=== PATIENT | female | born 1995 | race African-American/Black ===

== ENCOUNTER 2017-05-09 11:25 | Emergency (ER) | payer OTHER ==
[2017-05-09 11:56] VITALS: BP 133/84
--- NOTE | 2017-05-09 12:26 | UC ---
Respiratory Complaint HPI - HPI Summary HPI Summary: Pt presents with sinus congestion, ST, and cough. She tells me that about 10 days ago she began to have a ST. Soon thereafter she started having a dry cough and sinus congestion. Over the last 2-3 days she has had these symptoms in addition to a fever and productive cough with chest congestion. Pt says that she usually uses an albuterol syrup, which she has had good relief with since she was young, but she is currently out and would like a refill. Has not been taking anything OTC. Denies SOB, chest pain, palpitations, abdominal pain, N/V/D /C. - History of Current Complaint Chief Complaint: UCRespiratory Stated Complaint: COUGH,ASTHMA Time Seen by Provider: 05/09/17 12:17 Hx Obtained From: Patient Hx Last Menstrual Period: 04/22/17 ?: No Onset/Duration: Gradual Onset Timing: Constant Severity Initially: Mild Severity Currently: Moderate Character: Cough: Productive - Allergies/Home Medications Allergies/Adverse Reactions: Allergies Allergy/AdvReac Type Severity Reaction Status Date / Time No Known Allergies Allergy Verified 05/09/17 11:47 Home Medications: Home Medications Albuterol HFA INHALER* [Ventolin HFA Inhaler*] 2 puff INH Q4H PRN 05/09/17 [ History Confirmed 05/09/17] Albuterol SYRUP* [Proventyl Syrup*] PRN 05/09/17 [History] medroxyPROGESTERone ACETATE* [DEPO-Provera] 150 mg IM 05/09/17 [History] PMH/Surg Hx/FS Hx/Imm Hx Previously Healthy: Yes Respiratory History: Asthma - Surgical History Surgical History: Yes Surgery Procedure, Year, and Place: ORBITAL CYST REMOVAL - Social History Occupation: Student Lives: Dormitory/Roommates Alcohol Use: None Substance Use Type: None Smoking Status (MU): Never Smoked Tobacco Review of Systems Constitutional: Fever Skin: Negative Eyes: Negative ENT: Sore Throat, Nasal Discharge, Sinus Pain/Tenderness Respiratory: Cough Cardiovascular: Negative Gastrointestinal: Negative Genitourinary: Negative All Other Systems Reviewed And Are Negative: Yes Physical Exam Triage Information Reviewed: Yes Appearance: Well-Nourished, Ill-Appearing Vital Signs: Initial Vital Signs Temp 98.5 F 05/09/17 11:49 Pulse 73 05/09/17 11:49 Resp 20 05/09/17 11:49 BP 133/84 05/09/17 11:49 Pulse Ox 100 05/09/17 11:49 Vital Signs Reviewed: Yes Eyes: Positive: Conjunctiva Clear. Negative: Discharge ENT: Positive: Hearing grossly normal, Pharyngeal erythema, Nasal congestion, TMs normal, Tonsillar swelling - 2+, Sinus tenderness, Uvula midline. Negative : Nasal drainage, TM bulging, TM dull, TM red, Tonsillar exudate Neck: Positive: Supple, Nontender, No Lymphadenopathy Respiratory: Positive: Chest non-tender, Lungs clear, Normal breath sounds, No respiratory distress, No accessory muscle use Cardiovascular: Positive: RRR, No Murmur, Pulses Normal Skin: Negative: rashes UC Diagnostic Evaluation - Laboratory O2 Sat by Pulse Oximetry: 100 Respiratory Course/Dx - Course Course Of Treatment: Sinusitis. Bronchitis. Pharyngitis. POC strep negative. Zpak - Differential Dx/Diagnosis Differential Diagnosis/HQI/PQRI: Bronchitis, Influenza, Lower Resp Infection, Sinusitis Provider Diagnoses: Sinusitis. Bronchitis. Pharyngitis Discharge - Discharge Plan Condition: Stable Disposition: HOME Prescriptions: Albuterol SYRUP* [Proventyl Syrup*] 2 mg PO TID PRN #1 bottle PRN Reason: Sob/Wheezing Azithromycin TAB* [Zithromax TAB (Z-HARRIET) 250 mg #6 tabs] 2 tab PO .TODAY, THEN 1 DAILY #1 harriet Patient Education Materials: Sinusitis (ED), Acute Bronchitis (ED) Forms: *Work Release Additional Instructions: If you develop a fever, SOB, chest pain, new or worsening symptoms - please call your PCP or go to the ED.
== END 2017-05-09 12:53 | disposition home or self-care (01) ==
LOC: UCCORT 11:25
DX: J32.9 Chronic sinusitis, unspecified (principal); J40 Bronchitis, not specified as acute or chronic; J02.9 Acute pharyngitis, unspecified
CPT/HCPCS: 87651; 99202; G0463

== ENCOUNTER 2017-05-11 10:29 | Emergency (ER) | payer OTHER ==
[2017-05-11 10:49] VITALS: BP 132/86
[2017-05-11] MEDS ORDERED: Albuterol/Ipratropium NEB.SOL* Albuterol 2.5 MG/Ipratropium 0.5 MG 3 ML INH ONE (11:05)
--- NOTE | 2017-05-11 11:11 | UC ---
Respiratory Complaint HPI - HPI Summary HPI Summary: 22 female presents to with complaints of cough, chest congestion and still feeling ill since last seen here on Tuesday. Patient was diagnosed on Tuesday with bronchitis, given z-pack and albuterol syrup. States she has been taking the medication and feels she has had some improvement. However she threw away her last two doses of azithromycin and asked to resend. She also is asking for cough medication as her cough has been keeping her up all night and she is unable to sleep. States she has not tried any other medication other than the ones prescribed Tuesday. Does have asthma and feels it is exacerbating her asthma. Denies fever, sore throat, headache, chest pain and difficulty breathing. Sometimes feels SOB/wheezing on exertion. Does not use her inhaler because she did not bring it with her to school. No other complaints. No other PMHx. - History of Current Complaint Chief Complaint: UCRespiratory Stated Complaint: BRONCHITIS RECHECK Time Seen by Provider: 05/11/17 10:39 Hx Obtained From: Patient Hx Last Menstrual Period: 04/13/17 Onset/Duration: Sudden Onset, Lasting Days, Still Present Timing: Constant Severity Initially: Moderate Severity Currently: Mild Character: Cough: Productive - yellow now, was brown mucus like Aggravating Factors: Exertion, Deep Breaths, Recumbent Position Alleviating Factors: Upright Position, Other - meds prescribed tuesday Associated Signs And Symptoms: Positive: Wheezing, URI. Negative: Dyspnea, Fever, Chills, Dizziness, Nasal Congestion - Risk Factors Pulmonary Embolism Risk Factors: Negative Cardiac Risk Factors: Negative Pseudomonas Risk Factors: Negative Tuberculosis Risk Factors: Negative - Allergies/Home Medications Allergies/Adverse Reactions: Allergies Allergy/AdvReac Type Severity Reaction Status Date / Time No Known Allergies Allergy Verified 05/11/17 10:36 Home Medications: Home Medications Azithromycin TAB* [Zithromax TAB (Z-HARRIET) 250 mg #6 tabs] 1 tab PO DAILY [History Confirmed 05/11/17] PMH/Surg Hx/FS Hx/Imm Hx Respiratory History: Asthma - Surgical History Surgical History: Yes Surgery Procedure, Year, and Place: ORBITAL CYST REMOVAL - Family History Known Family History: Positive: None - Social History Alcohol Use: None Substance Use Type: None Smoking Status (MU): Never Smoked Tobacco - Immunization History Most Recent Influenza Vaccination: 2017 Review of Systems Constitutional: Fatigue ENT: Negative Respiratory: Shortness Of Breath, Cough Cardiovascular: Negative Gastrointestinal: Negative All Other Systems Reviewed And Are Negative: Yes Physical Exam Triage Information Reviewed: Yes Appearance: Well-Appearing, No Pain Distress, Well-Nourished Vital Signs: Initial Vital Signs Temp 98 F 05/11/17 10:38 Pulse 88 05/11/17 10:38 Resp 16 05/11/17 10:38 BP 132/86 05/11/17 10:38 Pulse Ox 100 05/11/17 10:38 Vital Signs Reviewed: Yes Eyes: Positive: Conjunctiva Clear ENT: Positive: Hearing grossly normal, Pharynx normal, TMs normal, Tonsillar swelling, Uvula midline. Negative: Nasal congestion, Nasal drainage, Tonsillar exudate, Muffled voice, Sinus tenderness Dental: Negative: Percussion Tenderness @, Cervical Lymphadenopathy Neck: Positive: Supple, Nontender, No Lymphadenopathy Respiratory: Positive: Chest non-tender, Lungs clear, Normal breath sounds, No respiratory distress, No accessory muscle use. Negative: Rhonchi, Stridor, Wheezing Cardiovascular: Positive: RRR, No Murmur, Pulses Normal Musculoskeletal: Positive: Strength Intact Neurological: Positive: Alert Skin: Positive: rashes UC Diagnostic Evaluation - Laboratory O2 Sat by Pulse Oximetry: 100 Re-Evaluation - Re-Evaluation First Eval Re-Evaluation Time: 11:25 Change: Improved - had some relief after duon neb. CTA without wheezing, ronchi and crackles Respiratory Course/Dx - Course Course Of Treatment: given duoneb while in UC, had relief. will give remaining two doses of azithromycin that patient threw away to finish pack. given cough medication for day and bedtime to help get rest. increase fluid intake. recommend mucinex and given inhaler to use as needed. normal PE and vital signs. aware of worsening signs and symptoms to watch out for. follow up with health center/pcp for re-check to ensure improvement. no concern for other etiolgy at this time. - Differential Dx/Diagnosis Differential Diagnosis/HQI/PQRI: Bronchitis, Other - URI Provider Diagnoses: bronchitis Discharge - Discharge Plan Condition: Stable Disposition: HOME Prescriptions: Acetaminop/Codeine 30 MG TAB* [Tylenol/Codeine 30 MG TAB*] 1 tab PO BEDTIME PRN #7 tab MDD 1 PRN Reason: Cough Albuterol HFA INHALER* [Ventolin HFA Inhaler*] 1 - 2 puff INH Q6H PRN #1 mdi PRN Reason: Sob/Wheezing Azithromycin TAB* [Zithromax TAB (Z-HARRIET) 250 mg #6 tabs] 250 mg PO DAILY #2 tab Benzonatate CAP* [Tessalon 100 MG CAP*] 100 mg PO TID PRN #15 cap PRN Reason: Cough Patient Education Materials: Acute Bronchitis (ED) Forms: *School Release Referrals: No Primary Care Phys,NOPCP [Primary Care Provider] - [facility] [Outside] Additional Instructions: Continue last two days of azithromycin as previously prescribed. Tessalon pearls during day and tylenol with codeine at bedtime, only. Recommend mucinex-d and hot showers/humidifier if available. Inhaler as needed for SOB/wheezing. Increase fluid intake, rest. Follow up for re-check with school health center in 3 days to ensure improvement. Any new or worsening symptoms please seek medical attention promptly.
== END 2017-05-11 11:38 | disposition home or self-care (01) ==
LOC: UCCORT 10:29
DX: J40 Bronchitis, not specified as acute or chronic (principal); J45.909 Unspecified asthma, uncomplicated
CPT/HCPCS: 99212; A9270-GY; G0463

== ENCOUNTER 2018-07-29 07:02 | Emergency (ER) | payer MEDICAID, OTHER ==
[2018-07-29 07:18] VITALS: BP 143/96
[2018-07-29 07:35] LABS: Influenza A Molecular POSITIVE (Negative)
--- NOTE | 2018-07-29 07:37 | UC ---
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 History of asthma, triggered by respiratory illness. Has never used a steroid inhaler, but has had past prednisone courses. Currently she is out of her albuterol, which she last used about 6 months ago. Awoke last night with cough and wheeze, and is here for renewal of medications and would like a flu test. Did have her flu shot this year. - History of Current Complaint Chief Complaint: UCGeneralIllness Stated Complaint: ASTHMA COMPLAINT Time Seen by Provider: 07/29/18 07:27 Hx Obtained From: Patient Hx Last Menstrual Period: on depo and does not get a menses Onset/Duration: Gradual Onset, Lasting Days - 5 Severity Initially: Moderate Severity Currently: Mild Pain Intensity: 0 Character: Cough: Nonproductive Aggravating Factors: Recumbent Position Alleviating Factors: OTC Meds Associated Signs And Symptoms: Positive: Dyspnea, Fever - Risk Factors Pulmonary Embolism Risk Factors: Negative Cardiac Risk Factors: Negative Pseudomonas Risk Factors: Negative Tuberculosis Risk Factors: Negative - Allergies/Home Medications Allergies/Adverse Reactions: Allergies Allergy/AdvReac Type Severity Reaction Status Date / Time No Known Allergies Allergy Verified 05/11/17 10:36 Home Medications: Home Medications Medroxyprogesterone Acetate [Depo-Provera Contraceptiv] 150 mg IM SEE INSTRUCTIONS 07/29/18 [History Confirmed 07/29/18] Phenylephrine/Dm/Acetaminop/GG [Mucinex Fast-Max Cold Flu] 1 liq PO DAILY PRN [History Confirmed 07/29/18] PMH/Surg Hx/FS Hx/Imm Hx Respiratory History: Asthma - Surgical History Surgical History: Yes Surgery Procedure, Year, and Place: ORBITAL CYST REMOVAL - Family History Known Family History: Positive: Diabetes - MGM - Social History Occupation: Student Alcohol Use: None Substance Use Type: None Smoking Status (MU): Never Smoked Tobacco - Immunization History Most Recent Influenza Vaccination: 2017 Review of Systems All Other Systems Reviewed And Are Negative: Yes Constitutional: Positive: Fever, Fatigue Skin: Positive: Negative Eyes: Positive: Negative ENT: Positive: Negative Respiratory: Positive: Negative Cardiovascular: Positive: Negative Gastrointestinal: Positive: Vomiting, Diarrhea - had episodes 2 days ago, now resolved. Genitourinary: Positive: Negative Motor: Positive: Negative Neurovascular: Positive: Negative Musculoskeletal: Positive: Negative Neurological: Positive: Headache - resolved Psychological: Positive: Negative Is Patient Immunocompromised?: No Physical Exam Triage Information Reviewed: Yes Appearance: Well-Appearing, No Pain Distress Vital Signs: Initial Vital Signs Temp 98.5 F 07/29/18 07:14 Pulse 91 07/29/18 07:14 Resp 16 07/29/18 07:14 BP 143/96 07/29/18 07:14 Pulse Ox 100 07/29/18 07:14 ENT: Positive: Pharynx normal, Tonsillar swelling. Negative: Tonsillar exudate Neck: Positive: Supple, Nontender, No Lymphadenopathy Respiratory: Positive: Lungs clear, Normal breath sounds Cardiovascular: Positive: RRR, No Murmur Musculoskeletal Exam: Normal Neurological: Positive: Alert, Muscle Tone Normal Psychological Exam: Normal Skin Exam: Normal UC Diagnostic Evaluation - Laboratory O2 Sat by Pulse Oximetry: 100 Diagnostic Studies Comment: Rapid flu positive Respiratory Course/Dx - Course Course Of Treatment: supportive treatment with albuterol. - Differential Dx/Diagnosis Differential Diagnosis/HQI/PQRI: Asthma, Influenza, Lower Resp Infection Provider Diagnosis: Influenza A, Asthma Discharge - Sign-Out/Discharge Documenting (check all that apply): Patient Departure All imaging exams completed and their final reports reviewed: No Studies - Discharge Plan Condition: Stable Disposition: HOME Prescriptions: Albuterol HFA INHALER* [Ventolin HFA Inhaler*] 2 puff INH Q4H PRN #1 mdi PRN Reason: COUGH, SOB Albuterol SYRUP* [Proventyl Syrup*] 2 mg PO TID PRN #1 bottle PRN Reason: Sob/Wheezing Patient Education Materials: Influenza (ED) Forms: *School Release Referrals: No Primary Care Phys,NOPCP [Primary Care Provider] - Additional Instructions: As reviewed, continue symptomatic treatment for asthma, using proventil as needed for relief of wheezing. - Billing Disposition and Condition Condition: STABLE Disposition: Home
== END 2018-07-29 07:55 | disposition home or self-care (01) ==
LOC: UCCORT 07:02
DX: J10.1 Influenza due to other identified influenza virus with other respiratory manifestations (principal); J45.909 Unspecified asthma, uncomplicated
CPT/HCPCS: 99212; G0463

== ENCOUNTER 2018-08-03 16:02 | Emergency (ER) | payer OTHER ==
[2018-08-03 16:21] VITALS: BP 119/77
--- NOTE | 2018-08-03 16:23 | UC ---
Throat Pain/Nasal Farhat HPI - HPI Summary HPI Summary: 23-year-old female presents with complaints of nasal congestion, sinus pressure , postnasal drip, and left ear pain. She was seen at this facility on 2018 and diagnosed with flu. She states that her symptoms were improving but over last 2-3 days she has been having worsening nasal congestion with maxillary sinus pressure and postnasal drip. States she was awoken during the night last night with severe left ear pain. Denies fever, chills, sore throat, cough, chest pain, shortness of breath, abdominal pain, nausea, vomiting, or diarrhea. - History of Current Complaint Chief Complaint: UCGeneralIllness Stated Complaint: SINUSES Time Seen by Provider: 08/03/18 16:10 Hx Obtained From: Patient Hx Last Menstrual Period: on depo and does not get a menses Pain Intensity: 3 - Allergies/Home Medications Allergies/Adverse Reactions: Allergies Allergy/AdvReac Type Severity Reaction Status Date / Time No Known Allergies Allergy Verified 05/11/17 10:36 Home Medications: Home Medications Acetaminophen [Mapap] 1,000 mg PO ONCE 08/03/18 [History Confirmed 08/03/18] PMH/Surg Hx/FS Hx/Imm Hx Respiratory History: Asthma - Surgical History Surgical History: Yes Surgery Procedure, Year, and Place: ORBITAL CYST REMOVAL - Family History Known Family History: Positive: Diabetes - MGM - Social History Occupation: Student Lives: Dormitory/Roommates Alcohol Use: None Substance Use Type: None Smoking Status (MU): Never Smoked Tobacco - Immunization History Most Recent Influenza Vaccination: 2017 Review of Systems All Other Systems Reviewed And Are Negative: Yes Constitutional: Negative: Fever, Chills Skin: Negative: Rash Eyes: Negative: Drainage, Eye Redness ENT: Positive: Ear Ache, Nasal Discharge, Sinus Congestion, Sinus Pain/ Tenderness. Negative: Sore Throat Respiratory: Negative: Shortness Of Breath Cardiovascular: Negative: Palpitations, Chest Pain Gastrointestinal: Negative: Abdominal Pain, Vomiting, Diarrhea, Nausea Genitourinary: Positive: Negative Musculoskeletal: Positive: Negative Neurological: Positive: Negative Is Patient Immunocompromised?: No Physical Exam - Summary Physical Exam Summary: GENERAL APPEARANCE: Well developed, well nourished, alert and cooperative, and appears to be in no acute distress. EYES: Conjunctiva clear. No drainage. Vision is grossly intact. EARS: External auditory canals and tympanic membranes clear, hearing grossly intact. NOSE: Mild-moderate nasal congestion. No nasal discharge. Maxillary sinus tenderness with percussion. THROAT: Mild pharyngeal erythema. No tonsilar inflammation, swelling, exudate, or lesions. Uvula midline. Oral cavity normal. Teeth and gingiva in good general condition. NECK: Neck supple, non-tender without lymphadenopathy. CARDIAC: Normal S1 and S2. No S3, S4 or murmurs. Rhythm is regular. There is no peripheral edema, cyanosis or pallor. Extremities are warm and well perfused. Capillary refill is less than 2 seconds. Peripheral pulses intact. LUNGS: Clear to auscultation without rales, rhonchi, wheezing or diminished breath sounds. ABDOMEN: Positive bowel sounds. Soft, nondistended, nontender. No guarding or rebound. No masses or hepatosplenomegally. MUSKULOSKELETAL: ROM intact to all extremities. No joint erythema or tenderness. Normal muscular development. Normal gait. SKIN: Skin normal color, texture and turgor with no lesions or eruptions. Triage Information Reviewed: Yes Vital Signs: Initial Vital Signs Temp 99.1 F 08/03/18 16:16 Pulse 66 08/03/18 16:16 Resp 17 08/03/18 16:16 BP 119/77 08/03/18 16:16 Pulse Ox 100 08/03/18 16:16 Vital Signs Reviewed: Yes Throat Pain/Nasal Course/Dx - Course Course Of Treatment: 23-year-old female presents with complaints of nasal congestion, sinus pressure, postnasal drip, and left ear pain. She was seen at this facility on 07/29/2018 and diagnosed with flu. She states that her symptoms were improving but over last 2-3 days she has been having worsening nasal congestion with maxillary sinus pressure and postnasal drip. States she was awoken during the night last night with severe left ear pain. Denies fever , chills, sore throat, cough, chest pain, shortness of breath, abdominal pain, nausea, vomiting, or diarrhea. Afebrile. Vital signs stable. Exam reveals a young adult female in no acute distress with mild to moderate nasal congestion, maxillary sinus tenderness, erythematous right TM, mild pharyngeal erythema without tonsillar swelling or exudate, clear bilateral breath sounds and otherwise unremarkable exam. Will start her on Augmentin 875 mg twice a day 10 days for the acute otitis media and recommend symptomatic treatment for her sinus symptoms. She is to return here or follow up at the [facility] in 7 days if symptoms do not improve. Anticipatory guidance and warning symptoms reviewed with the patient. Verbalizes understanding and agrees with plan of care. - Differential Dx/Diagnosis Differential Diagnosis/HQI/PQRI: Influenza, Pharyngitis, Sinusitis, Tonsillitis , URI Provider Diagnosis: Acute sinusitis, Left otitis media Discharge - Sign-Out/Discharge Documenting (check all that apply): Patient Departure All imaging exams completed and their final reports reviewed: No Studies - Discharge Plan Condition: Stable Disposition: HOME Prescriptions: Amoxicillin/Clavulanate TAB* [Augmentin TAB 875*] 875 mg PO BID #20 tab Fluticasone NASAL SPRAY 50MCG* [Flonase NASAL SPRAY 50MCG*] 2 spray BOTH NARES DAILY #1 btl Patient Education Materials: Sinusitis (ED), Ear Infection (ED) Forms: *School Release Referrals: No Primary Care Phys,NOPCP [Primary Care Provider] - Additional Instructions: Your history and exam are consistent with an acute sinus infection and secondary left ear infection. We will start you on an antibiotic for the ear infection. Take Augmentin 875 mg 1 tab twice a day for 10 days. Take with food to avoid upset stomach. Be sure to complete the full 10 days even if feeling better. Drink plenty of fluids to avoid dehydration especially if you are running any fever. Use a saline rinse kit such as Neti Pot or NeilMed at least twice a day to help thin secretions and promote drainage of the sinuses. Use fluticasone (Flonase) nasal spray 2 sprays each nostril once daily. Use an over the counter decongestant such as Sudafed according to directions to help with congestion. Take over the counter acetaminophen (Tylenol) or ibuprofen (Advil, Motrin) according to directions as needed for pain or fever. Return here or follow up at the [facility] in 7 days if symptoms persist. Seek immediate medical attention in the emergency room if you have fever greater than 100.5 F despite taking acetaminophen or ibuprofen, have chest pain , difficulty breathing, are unable to swallow, or have any worsening of symptoms. - Billing Disposition and Condition Condition: STABLE Disposition: Home
== END 2018-08-03 16:52 | disposition home or self-care (01) ==
LOC: UCCORT 16:02
DX: J01.90 Acute sinusitis, unspecified (principal); H66.92 Otitis media, unspecified, left ear; J45.909 Unspecified asthma, uncomplicated
CPT/HCPCS: 99212; G0463